=== PATIENT | female | born 1995 | race Two or more races ===

== ENCOUNTER 2024-12-01 08:57 | Inpatient (IN) | payer OTHER, SELFPAY ==
--- OUTSIDE RECORDS SUMMARY | 2013-08-02 09:30 | XMS_ITS | Continuity of Care Document ---
Author Organization [email or web address] Address [address] [place] [address] Phone Care Team Providers Care Correction Officer [facility] Name Role Phone Unavailable Unavailable Unavailable Advance Directives Directive Yes / No Effective Date File Name No Information Encounters Encounter Description Practice Location Reason(s) For Visit Diagnoses Date Provider Providers Copied on Encounter [email or web address], [address], [place], [place], [id number], [place] tel:[phone] [facility] No Information No Information Family History Family Member Type Diagnosis Age At Onset Father Problem (finding) Alive and well Mother Problem (finding) Alive and well Payers Payer name Insurance type Covered alliance party ID Authoriza tion(s) No Information Social History Type Description Quantity Date Captured Comments Sex Female Smoking Status No Information Chief Complaint And Reason For Visit No Information Reason For Referral Reason For Referral No Information History Of Present Illness Encounter Date Complaint History Of Prese nt Illness No Information Functional Status Date Functional Assessmen t No Information Instructions Date Instruction Additional Infor mation No Information Assessments Type Assessment Date No Information Patient Care Teams Name Effective Dates (start - stop) Status Members No Information
--- OUTSIDE RECORDS SUMMARY | 2019-12-01 06:27 | XMS_ITS | Continuity of Care Document ---
Author Organization [employer] Address [address] [place] [address] Phone Care Team Providers Care Qc Chemist Name Role Phone Nursing, Opt Tech Unavailable Unavailable Allergies, Adverse Reactions, Alerts Substance Reaction Status Criticality No Known Allergies Active No Inform ation Medications Medication Instructions Dosage Effective Dates (start - stop) Status Comments No Drug Therapy Prescribed Problems Condition Type Effective Dates (start - stop) Clini jude Status Comments No Known Problems Procedures Procedure Date PREV VISIT, EST, AGE 18-39 IZ Admin, Vaccine For Adults U/A DIP, W/ Urinalyzer SPECIMEN HANDLING URINE TEST OFFICE/OUTPATIENT VISIT, NEW CONFIDENTIAL ENCOUNTER Advance Directives Directive Yes / No Effective Date File Name No Information Encounters Encounter Description Practice Location Reason(s) For Visit Diagnoses Date Provider Providers Copied on Encounter 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 [address] [place], [address], [place]. tel:[phone] [facility] Jovani jason, [address] [place] [address], [id number] , tel:[phone] DELMI Gómez Referral of patient without examination or treatment 0 Nursing [employer] [address] [place], [address], [place]. tel:[phone] PREV VISIT, EST, AGE 18-39 [facility], [address], [place], [place], [id number] , tel:[phone] [facility] [place] Adult PE (chief complaint) Encntr for general adult medical exam w/o abnormal findingsTuberculo sis screeningBody mass index (BMI) 28.0-28.9, adult [address], [id number] [place], [address], . tel:[phone] OFFICE/OUTPA TIENT VISIT, NEW [facility], [address], [place], [place], [id number] , tel:[phone] [facility] Sem[place] abdominal pain (chief complaint) Contraceptive surveillanceAbdom inal pain No Information Family History Family Member Type Diagnosis Age At Onset No Information Immunizations Vaccine Date Status Comments HPV9 administered Source: [facility] unization Record Payers Payer name Insurance type Covered green party ID Authoriza tion(s) No Information Social History Type Description Quantity Date Captured Comments Alcohol Use Details Unknown Caffeine Use Details Unknown Tobacco Use Status No Information Smoking Status No Information Sex Female Chief Complaint And Reason For Visit No Information Plan Of Treatment Date Type Action Status Goal Breast exam. Due on due Goal Tdap. Due on due Goal Influenza vaccine. Due on due Goal PAP (21 + yr). Due on due Goal PAP (21 + yr). Due on due Goal Tdap. Due on due Goal Influenza vaccine. Due on due Goal Breast exam. Due on 020 due Goal Breast exam. Due on 019 due Goal Influenza vaccine. Due on due Goal Tdap. Due on due Goal PAP (21 + yr). Due on due Goal Lifestyle education regardin g diet completed Goal Flu Preservative Free, 5yr+ and OB (Tri). Due on due Goal Tdap. Due on due Referral Ordered: Pending Provider (related to Referral of patient without examination or treatment) ordered Referral Referred To: Pending Provider Ordered: Referrals: Psychotherapy. Pending Provider. Evaluate and treat ordered History Of Present Illness Encounter Date Complaint History Of Prese nt Illness Adult PE Period: irregula rBCM:nexplanonpap: 1 year - CMHConcerns: need marriage PELast dental visit: 3 yearLast optometry visit: neverLast Tdap:2013Last PPD:2 years negativeFruits and Vegetables:Physical activity:pmhx deniessxhx deniesfmhx denies abdominal pain Onset: 3 Days. T he severity of the problem is mild. Pain scale: 6/10. The problem is improving. The symptoms are intermittent. The location is midline. The quality of the pain is achy. Pertinent negatives include back pain, bloating, blood in stool, change in appetite, constipation, diarrhea, dyspnea, fever, flank pain, heartburn, hematuria, nausea, vaginal bleeding, vaginal discharge and vomiting. Medications Administered Medication Instructions Dosage Effective Dates (start - stop) Status Comments No Drug Therapy Prescribed Instructions Date Instruction Additional Infor mation Lifestyle education regarding di et Related to BMI 28.0-28.9,adult Giving encouragement to exercise Related to BMI 28.0-28.9,adult Assessments Type Assessment Date No Information
[2024-12-01] VITALS (102 sets, daily range): BP systolic 79–130; BP diastolic 42–89; PULSE 75–127; RESP 16–18; TEMP 36.1–36.8; O2SAT 98–100; BMI 41.7
--- NOTE | 2024-12-01 09:43 | LDADM ---
This patient, Mary Glover, was admitted to Labor/Delivery/Recovery 105 on 12/01/24 at 08:57. Plans for labor, pain management and were discussed with patient. Patient/family oriented to hospital policies and general routines including ID bracelet, bed and alarms, visiting hours, pain management, procedures, bathroom and other care routines, personal items, smoking policy, room service/diet and guest tray routines, security routines, and visiting hours. Patient/Family are encouraged to report perceived risks to care and to ask questions if they do not understand what they are told or what they should do. See [facility] for further documentation.
[2024-12-01 09:49] LABS: Hematocrit 34.9 % (37.0-47.0); Hemoglobin 11.0 g/dL (12.0-15.0); Immature Granulocyte Percent A 0.7 % (0-0.5); Lymphocytes Absolute Auto 1.86 K/mm3 (0.9-3.2); Mean Corpuscular HGB Conc 31.5 g/dl (32-36); Mean Corpuscular Hemoglobin 27.4 pg (26-34); Mean Corpuscular Volume 86.8 fl (80-100); Nucleated Red Blood Cells Absolute Auto 0.000 K/mm3 (0.0-0.012); Nucleated Red Blood Cells Perc 0.0 % (0.0-0.2); Platelet Count Result 297 k/mm3 (150-375); Red Blood Count 4.02 M/mm3 (4.2-5.4); White Blood Count 7.3 K/mm3 (4.5-10.0)
--- OUTSIDE RECORDS SUMMARY | 2024-12-01 10:06 | XMS_ITS | Clinical Summary ---
Author Organization [facility] Address [address] [place] [address] Care Team Providers Care Directional Driller Name Role Phone Unavailable Primary Care Provider Unavailabl e Source Comments [facility],non-owned Affiliates and Associated Physician Practices is amultiple site organization consisting of ambulatory clinics and hospital sitesin [place], [place], [place] and [place]. This disclosure is being madepursuant to the Care Everywhere program and may not contain all information available regarding this patient. Last updated 17.[employer] Allergies No known active allergies Medications * Be aware that medications may not be up to date on this document. Alwaysverify current medications with the patient. Vit-Iron Carbonyl-FA (Thrivite Rx) 29-1 MG TABSIndications:Pre gnancy Take 1 tablet by mouth once daily Reasons: 90 tablet 3 05/11/19 24 Active Additional Information Patient not taking.Reported on 09/18/2024 docusate sodium (Colace) 100 MG capsule Take 1 (one) capsule by mouth once daily 90 capsule 3 05/11/19 24 Active Additional Information Patient not taking.Reported on 09/18/2024 iron polysaccharides (Niferex 150) 150 MG capsule Take 1 (one) capsule by mouth once daily 100 capsule 09/06/19 24 Active Additional Information Patient not taking.Reported on 09/18/2024 acetaminophen (Tylenol) 500 MG tablet Take 2 (two) tablets by mouth every 6 hours as needed Maximum allowable Acetaminophen amount = 4 Grams (4000 mg) / 24 hours. 60 tablet 11/01/19 24 Active ondansetron, disintegrating, (Zofran ODT) 4 MG tablet Take 1 (one) tablet by mouth every 6 hours as needed for Nausea/Vomiting Allow tablet to dissolve on the tongue 30 tablet 2 05/15/19 Active Additional Information Patient not taking.Reported on 09/18/2024 plus iron (Natatab) 29-1 MG tabletIndications:P regnancy Take 1 (one) tablet by mouth once daily Reasons: 90 tablet 3 06/13/19 Active Active Problems Patient Care Coordination No te Formatting of this note migh t be different from the original. [employer] form completed. Diapers given. 08/09/2023; 09/06/23, 10/04/23, 10/25/23, 09/18/2024 Problem Noted Date Diagnosed Date Short interval between pregn ancies affecting , antepartum 07/24/2024 20 weeks gestation of 07/24/2024 Supervision of low-risk 05/16/2024 Overview (05/16/2024): Supervision of - Datin wk US - PNL: O+/pending/-/-, NR/NR - Gc/Chl/trich: -/-/- - Urine culture: pending - UDS: negative - Hgb Elec: wnl 2023 - Cystic Fibrosis: negative 2023 - SMA carrier screening: negative 2023 - NIPT: collected 05/15 - Pap: NILM 04/2023 - MOF: breast/formula - MOC: to be discussed - MOD: ALVIN - EPDS: 0 - PNVs: prescribed - Influenza vaccine: declines 05/15 - COVID vaccine: declines 05/15 - RSV vaccine: out of season - GCT: at 28 weeks - 3T labs: at 28 weeks - Tdap: at 28 weeks - Rhogam: not indicated - GBS: at 36 weeks Transportation insecurity 05/11/2023 Estimated Date of Delivery Comme nts Yes 12/07/2024 Based on Ultraso und Resolved Problems Problem Noted Date Diagnosed Date Resolved Date Dizziness 06/29/2023 09/06/2023 Hypokalemia 06/29/2023 05/16/2024 Overview (08/23/2023): 4/9/24- K+ 3.1, Oral repletion in [facility] Repeat 08/09/23 3.5: Stable Assessment & Plan (07/13/2023 11:09 AM CDT): Supplemented in [facility] Repeat CMP with third trimester labs at follow up Encounter for supervision of low-risk in second trimester 05/11/2023 05/16/2024 Overview (10/11/2023): Datin week US PNL: O+/I/-/-, HIV NR Pap: NILM 04/2023 GC/CT/trich: negative Urine cx: negative UDS: negative H/H/P: 11.4/33.8/283 HgbE: WNL CF/SMA: Negative Genetics: NIPT LR Anatomy US: 18-20 weeks Tdap: administered 08/09/23 HCV: NR Third trimester: GCT: 124 H&H/Plt: 10.1&31.8/300 HIV/TPA: nr/nr GBS: Negative MOF/MOC:BR/OCP (given instructions on how to obtain breast pump) Assessment & Plan (10/25/2023 1:52 PM CDT): - PNC up to date - Patient would like to discuss IOL at f/u if undelivered. Assessment & Plan (10/18/2023 2:41 PM CDT): Desires Spontaneous Labor. Assessment & Plan (10/11/2023 2:50 PM CDT): GBS Negative Assessment & Plan (08/23/2023 1:08 PM CDT): MOF/MOC:BR/OCP (given instructions on how to obtain breast pump) Assessment & Plan (07/13/2023 11:09 AM CDT): Anatomy incomplete, AGA 06/14 Complete anatomy and repeat growth Third trimester labs at follow up Assessment & Plan (06/15/2023 10:39 AM CDT): Reviewed NOB labs today Anatomy US today History of blood transfusion 05/11/2023 07/24/2024 Overview (10/04/2023): H&H 08/09/23: 10.1/31.8 Adherent to PO iron Assessment & Plan (10/25/2023 1:52 PM CDT): - Compliant with PO Fe Assessment & Plan (10/11/2023 2:50 PM CDT): Compliant with Oral Iron Assessment & Plan (07/13/2023 11:10 AM CDT): Reassess CBC with third trimester labs Encounters Date Type Department Care Team Description 10/20/2024 Patient Outreach [facility] [address] [place] [address] Lashell May RN Care Management Other (Called pt to follow up on resources sent for SDUT needs. LAMP services used. Pt states things are going well. Pt states she has stable housing and bills are up to date. Has SNAP and WIC and denies food insecurity. Still had reliable transportation. Pt did not make it to her last PNV, asked pt if she was continuing care with [facility] and she stated yes. Stress level is 3/10, it has gotten better. Pt states she has a car seat and crib and other essentials for baby. Denies needing any additional res) 09/18/2024 12:58 PM CDT - 09/18/2024 11:59 PM CDT Hospital Encounter [facility] [address] [place] [address] Flores Mcdaniel MD Discharge Disposition: Home or Self Care 09/18/2024 Travel from Last 3 Months Immunizations Immunization Administration Dates Next Due MMR 11/01/2023() TDAP (7yrs+) 09/18/2024,11/01/2023(),08/09/19 Family History Medical History Relation Name Comments None Known Brother 1 None Known Brother 2 None Known Brother 3 None Known Brother 4 None Known Brother 5 None Known Father None Known Mother Relation Name Status Comments Brother 1 Brother 2 Alive Brother 3 Alive Brother 4 Alive Brother 5 Alive Father Alive Mother Alive Social History Tobacco Use Types Packs/Day Years Used Date Smoking Tobacco: Never Smokeless Tobacco: Never Tobacco Cessation:Counseling Given: Not Answered Alcohol Use Standard Drinks/Week Comments Not Currently 0 (1 standard drink = 0.6 oz pur e alcohol) Overall Financial Resource Strain (CARDIA) Answe r Date Recorded How hard is it for you to pa y for the very basics like food, housing, medical care, and heating? Not very hard 09/18/2024 [facility] Occupat ional Health - Occupational Stress Questionnaire Answer Date Recorded Do you feel stress - tense, restless, nervous, or anxious, or unable to sleep at night because your mind is troubled all the time - these days? Not at all 09/18/2024 Hunger Vital Sign Answer Date Recorded Within the past 12 months, y ou worried that your food would run out before you got the money to buy more. Never true 09/19/19 25 Within the past 12 months, t he food you bought just didn't last and you didn't have money to get more. Never true 09/18/2024 PRAPARE - Transportation Answer Date Re corded In the past 12 months, has l ack of transportation kept you from medical appointments or from getting medications? No 08/22 In the past 12 months, has l ack of transportation kept you from meetings, work, or from getting things needed for daily living? No 09/18/2024 Housing Stability Vital Sign Answer Ede e Recorded In the last 12 months, was t here a time when you were not able to pay the mortgage or rent on time? No 12/06/2023 In the last 12 months, how many places have you lived? 2 12/06/2023 In the last 12 months, was t here a time when you did not have a steady place to sleep or slept in a mcfp (including now)? No 12/06/2023 Caldwell Depression Scale Answer Date Recorded Caldwell Depression Scale Total 0 05/15/2024 The thought of harming myself has occurred to me . Never 05/15/2024 Housing Stability Vital Sign Answer Ede e Recorded In the last 12 months, was t here a time when you were not able to pay the mortgage or rent on time? No 09/18/2024 In the past 12 months, how m any times have you moved where you were living? 1 09/18/2024 At any time in the past 12 m [facility], were you homeless or living in a mcfp (including now)? No 09/18/2024 Estimated Date of Delivery Comme nts Yes 12/07/2024 Based on Ultraso und Sex and Gender Information Value Date Recorded Sex Assigned at Not on file Legal Sex Female 11:17 AM CUSTOMER ACCOUNT EXECUTIVE Gender Identity Not on file Sexual Orientation Not on file Last Filed Vital Signs Vital Sign Reading Time Taken Comments Blood Pressure 94/65 09/18/2024 1:43 PM CDT Pulse 87 09/18/2024 1:43 PM CDT Temperature 36.9 C (98.4 F) 11/01/2023 10:15 AM CDT Respiratory Rate 18 11/01/2023 10:1 5 AM CDT Oxygen Saturation 100% 11/01/2023 10: 15 AM CDT Inhaled Oxygen Concentration - - Weight 73.4 kg (161 lb 12.8 oz) 09/18/2024 1:43 PM CDT Height 139.7 cm (4' 7) 05/15/2024 2:20 PM CUSTOMER ACCOUNT EXECUTIVE Body Mass Index 37.61 05/15/2024 2:20 PM CUSTOMER ACCOUNT EXECUTIVE Plan of Treatment Upcoming Encounters Date Type Department Care Team (Late st Contact Info) Description 12/05/2024 3:00 PM CDT Appointment [facility] [address] [place] [address] [address] [place] [address] Health Maintenance Due Date Last Done Comments HEPATITIS B VACCINE (1 of 3 - 19+ 3-dose series) 01/29/2016 HPV VACCINE (1 - 3-dose SCDM series) 01/29/2024 OB-GROUP B STREP SCREEN 11/02/2024 11/07/2024, 10/03 COVID-19 VACCINE ( season) 2024 INFLUENZA VACCINE (#1) 2024 03/04/2023 PAP SMEAR 05/11/2026 05/11/2023 DTAP/TDAP/TD VACCINES (3 - Td or Tdap) 09/18/2034 09/18/2024, 08/09/2023 ZOSTER VACCINE (1 of 2) 2047 DEPRESSION SCREENING Completed 05/15/2024 HEPATITIS C SCREENING Completed 05/15/2024, 024 HIV SCREENING Completed 09/18/2024, 04/23, 08/09/2023, Additional history exists OB-ONE HOUR GLUCOSE Completed 09/18/2024, OB-TDAP CURRENT Completed 09/18/2024, HIB VACCINE Aged Out No longer eligi ble based on patient's age to complete this topic MENINGOCOCCAL (Group B) VACCINE SHARED DECISION-MAKING Aged Out No longer eligible based on patient's age to complete this topic MENINGOCOCCAL GROUPS A/C/Y/W VACCINE Aged Out No longer eligible based on patient's age to complete this topic PNEUMOCOCCAL VACCINE Aged Out No long er eligible based on patient's age to complete this topic Respiratory Syncytial Virus (RSV) Vaccine Pt: or over 60 yrs (No Doses Required) Completed Procedures Procedure Name Priority Date/Time Associated Diagnosis Comments SYPHILIS ANTIBODY CASCADING REFLEX Routine 09/18/2024 2:11 PM CDT Supervision of low-risk HIV-1 HIV-2 ANTIBODY + HIV P24 AG PANEL Routine 09/18/2024 2:11 PM CDT Supervision of low-risk CBC W AUTO DIFFERENTIAL Routine 09/18/2024 2:11 PM CDT Supervision of low-risk GLUCOSE CHALLENGE Routine 09/18/2024 2:1 1 PM CDT Supervision of low-risk HEPATITIS C ANTIBODY Routine 05/15/2024 2:57 PM CUSTOMER ACCOUNT EXECUTIVE Encounter for supervision of low-risk in second trimester CULTURE STREP B Routine 10/04/2023 2:04 PM CDT Encounter for supervision of low-risk in second trimester PAP IG LB RFLX HPV APTIMA ASCU Routine 05/11/2023 10:47 AM CUSTOMER ACCOUNT EXECUTIVE Encounter for supervision of low-risk in second trimester from Last 3 Months or Most Recently Relevant to Health Maintenance Results * SYPHILIS ANTIBODY CASCADING REFLEX (09/18/2024 2:11 PM CDT) Treponema pallidum Antibody Non Reactive Non Reactive 09/18/2024 3:36 PM CDT [facility] Comment: No Laboratory evidence of syphilis infection. Note: Circulating antibodies may be low or undetectable in early infection. If recent exposure is suspected, re-draw sample in 2-4 weeks and repeat testing. Blood BLOOD SPECIMEN / Unknown Venipuncture / Unknown 09/18/2024 2:11 PM CDT 09/18/2024 2:47 PM CDT Flores Mcdaniel MD LAB - SEROLOGY ORDERABLES Final Result Performing Organization Address [facility] Co de Phone Number [facility] [address] [place], [place] [phone] * HIV-1 HIV-2 ANTIBODY + HIV P24 AG PANEL (09/18/2024 2:11 PM CDT) Pathologist [facility] HIV1/2 Ab + P24 Ag Non Reactive Non Reactive 09/18/2024 3:36 PM CDT [facility] Blood BLOOD SPECIMEN / Unknown Venipuncture / Unknown 09/18/2024 2:11 PM CDT 09/18/2024 2:47 PM CDT Narrative [facility] - 09/18/2024 3:36 PM CDT No Laboratory evidence of HIV infection. Flores Mcdaniel MD LAB - CHEMISTRY ORDERABLES Ansley l Result Performing Organization Address [facility] Co de Phone Number [facility] [address] [place] [phone] * (ABNORMAL) CBC W AUTO DIFFERENTIAL (09/18/2024 2:11 PM CDT) Pathologist [facility] WBC 7.4 4.0 - 10.7 x10E9/L 09/18/2024 2:55 PM CDT [facility] RBC Count 3.64(L) 3.90 - 5.20 x10E12/L 09/18/2024 2:55 PM CDT [facility] Hemoglobin 10.7(L) 11.9 - 15.8 g/dL 09/18/2024 2:55 PM CDT [facility] Hematocrit 32.6(L) 34.8 - 46.1 % 09/18/2024 2:55 PM CDT [facility] MCV 89.6 80.0 - 98.0 fL 09/18/2024 2:55 PM CDT [facility] MCH 29.4 26.7 - 33.6 pg 09/18/2024 2:55 PM CDT [facility] MCHC 32.8 31.7 - 36.3 g/dL 09/18/2024 2:[facility] RDW-CV 13.4 11.3 - 14.8 % 09/18/2024 2:55 [address] [facility] Platelet Count 311 150 - 420 x10E9/L 09/18/2024 2:55 PM CDT [facility] MPV 9.8 7.8 - 11.4 fL 09/18/2024 2:55 [address] [facility] Neutrophil % 59.4 41.0 - 74.0 % 09/18/2024 2:55 PM CDT [facility] Lymphocyte % 29.3 17.0 - 47.0 % 09/18/2024 2:55 PM CDT [facility] Monocyte % 9.7 3.0 - 11.0 % 09/18/2024 2:55 PM CDT [facility] Eosinophil % 0.5 0.0 - 7.0 % 09/18/2024 2:55 PM CDT [facility] Basophil % 0.3 0.0 - 1.6 % 09/18/2024 2:55 PM CDT [facility] Immature Granulocytes % 0.8 0.0 - 1.0 % 09/18/2024 2:55 PM CDT [facility] Neutrophil Absolute 4.42 1.60 - 7.50 x10E9/L 09/18/2024 2:55 PM CDT [facility] Lymphocyte Absolute 2.18 1.00 - 4.40 x10E9/L 09/18/2024 2:55 PM CDT [facility] Monocyte Absolute 0.72 0.15 - 1.00 x10E9/L 09/18/2024 2:55 PM CDT [facility] Eosinophil Absolute 0.04 0.00 - 0.60 x10E9/L 09/18/2024 2:55 PM CDT [facility] Basophil Absolute 0.02 0.00 - 0.13 x10E9/L 09/18/2024 2:55 PM CDT [facility] Blood BLOOD SPECIMEN / Unknown Venipuncture / Unknown 09/18/2024 2:11 PM CDT 09/18/2024 2:47 PM CDT Flores Mcdaniel MD LAB - HEMATOLOGY ORDERABLES Fin al Result Performing Organization Address [facility] Co de Phone Number [facility] [address] [place] [phone] * GLUCOSE CHALLENGE (09/18/2024 2:11 PM CDT) [facility] Glucose Challenge 95 64 - 140 mg/dL 09/18/2024 3:14 PM CDT [facility] Glucose Challenge Time 09/18/2024 3:14 PM CDT [facility] Blood BLOOD SPECIMEN / Unknown Venipuncture / Unknown 09/18/2024 2:11 PM CDT 09/18/2024 2:47 PM CDT Flores Mcdaniel MD LAB - CHEMISTRY ORDERABLES Ansley l Result Performing Organization Address City/[facility] Co de Phone Number [facility] [address] [place] [phone] * HEPATITIS C ANTIBODY (05/15/2024 2:57 PM CUSTOMER ACCOUNT EXECUTIVE) [facility] HCV Antibody Screen Non Reactive Non Reactive 05/15/2024 4:10 PM CUSTOMER ACCOUNT EXECUTIVE [facility] Blood BLOOD SPECIMEN / Unknown Venipuncture / Unknown 05/15/2024 2:57 PM CUSTOMER ACCOUNT EXECUTIVE 05/15/2024 3:18 PM CUSTOMER ACCOUNT EXECUTIVE Narrative [facility] - 05/15/2024 4:10 PM CUSTOMER ACCOUNT EXECUTIVE Non Reactive - Antibodies to Hepatitis C virus (HCV) were not detected, result does not exclude early acute HCV infection. us Zak Fonseca MD LAB - CHEMISTRY ORDERABLES Ansley roth Result Performing Organization Address City/[facility]/ZIP Co de Phone Number [facility] [address] [place] [address] * CULTURE STREP B (10/04/2023 2:04 PM CDT) Culture Strep B Negative for beta-hemolytic Streptococcus Group B ZULLY 10/07/2023 12:02 PM CDT [facility] MICROBIOLOGY Microbiology MISCELLANEOUS SAMPLES / Unknown Collection / Unknown 10/04/2023 2:04 PM CDT 10/04/2023 2:38 PM CDT Flores Mcdaniel MD LAB - MICROBIOLOGY ORDERABLES F inal Result Performing Organization Address [facility] Co de Phone Number [facility] MICROBIOLOGY [address] [phone] * PAP IG LB RFLX HPV APTIMA ASCU (05/11/2023 10:47 AM CUSTOMER ACCOUNT EXECUTIVE) Diagnosis Comment 05/14/2023 1:10 PM CUSTOMER ACCOUNT EXECUTIVE [facility] ([facility]) Comment:NEGATIVE FOR INTRAEP ITHELIAL LESION OR MALIGNANCY. Specimen Adequacy Comment 1:10 PM CUSTOMER ACCOUNT EXECUTIVE [facility] ([facility]) Comment: Satisfactory for evaluation. Endocervical and/or squamous metaplastic cells (endocervical component) are present. Performed by Comment 05/14/2023 1:10 PM CUSTOMER ACCOUNT EXECUTIVE [facility] ([facility]) Comment:Irina Mayer Cyto technologist (ASCP) Comment . 05/14/2023 1:10 PM CUSTOMER ACCOUNT EXECUTIVE [facility] ([facility]) Note Comment 05/14/2023 1:10 PM CUSTOMER ACCOUNT EXECUTIVE [facility] ([facility]) Comment: The Pap smear is a screening test designed to aid in the detection of premalignant and malignant conditions of the uterine cervix. It is not a diagnostic procedure and should not be used as the sole means of detecting cervical cancer. Both false-positive and false-negative reports do occur. IGL[facility] CPT Code Automation Comment 05/14/2023 1:10 PM CUSTOMER ACCOUNT EXECUTIVE [facility] ([facility]) Comment: This liquid based ThinPrep(R) pap test was screened with the use of an image guided system. Note Comment 05/14/2023 1:10 PM CUSTOMER ACCOUNT EXECUTIVE [facility] ([facility]) Comment: The HPV DNA reflex criteria were not met with this specimen result therefore, no HPV testing was performed. Pathology/Cytolo gy ENTIRE ENDOCERVIX / Unknown Collection / Unknown 05/11/2023 10:47 AM CUSTOMER ACCOUNT EXECUTIVE 05/11/2023 11:16 AM CUSTOMER ACCOUNT EXECUTIVE Narrative [facility] ([facility]) - 05/14/2023 1:10 PM CUSTOMER ACCOUNT EXECUTIVE Performed at: 01 - [address] [id number] Forensic Nurse: Jenae Weems MD, Phone: [phone] Specimen Comment: Source.............Endocervix Specimen Comment: No. of containers..01 ThinPrep Vial Marcella Watters APRN-TABLE INSPECTOR LAB - PATHOLOGY/CYTO LOGY ORDERABLES Final Result [facility] ([facility]) [address] [place] [phone] from Last 3 Months or Most Recently Relevant to Health Maintenance Insurance [facility] Advance Directives * Full Code (Latest Code Status on File) Date Activated Date Inactivated Comments 10/31/2023 3:01 AM 11/01/2023 4:04 PM * Full Code Date Activated Date Inactivated Comments 06/29/2023 11:01 AM 06/29/2023 1:48 PM
[2024-12-01] MEDS: LACTATED RINGERS 1,000 ML 125 ML IV CONT ×2 (10:10→13:26)
[2024-12-01 10:23] LABS: Alanine Aminotransferase 16 U/L (6-35); Albumin Level 3.7 g/dL (3.5-5.1); Alkaline Phosphatase 177 U/L (38-126); Anion Gap 10 mmol/L (4-12); Aspartate Amino Transferase 24 U/L (14-36); Bilirubin,Total 0.2 mg/dL (0.2-1.3); Blood Urea Nitrogen 7 mg/dL (7-17); Calcium 8.8 mg/dL (8.4-10.2); Carbon Dioxide 17 mmol/L (22-30); Chloride 106 mmol/L (98-107); Estimated Glomerular Filt Rate > 60; Glucose 100 mg/dL (65-110); Potassium 3.9 mmol/L (3.4-5.0); Sodium 133 mmol/L (137-145); Total Protein 7.3 g/dL (6.3-8.2)
[2024-12-01] MEDS: TERBUTALINE SULFATE 1 MG/ML VIAL 0.25 MG SUB-Q (10:44)
[2024-12-01 10:51] LABS: Syphilis IgG/IgM Antibody Non-Reactive (Nonreactive)
[2024-12-01 11:15] LABS: Hepatitis B Surface Antigen Negative (Negative)
--- NOTE | 2024-12-01 12:36 | WPDHPUPDATE1 ---
History and Physical Update Update Date/Time: 12/01/24 12:36 this patient is a 29-year-old multiparous female at term who presents in labor. She had a heart deceleration that resolved. Rupture membranes was just performed. She has clear fluid. She is 6/50%/-2. Reassuring status. Active management of labor. History and Physical has been reviewed, including an updated exam of the patient. There are NO changes in the patient's condition. Risks, benefits, and alternatives have been discussed and questions answered. Patient agrees to proceed with procedure.
[2024-12-01] MEDS: OXYTOCIN 30 UNITS/NS 500 ML 30 UNITS/500 ML BAG IV CONT (13:24)
--- NOTE | 2024-12-01 14:38 | P.PNAN_ITS ---
Anes - Initial Pre Proc Eval Procedure: labor epidural Date/Time: 12/01/24 14:38 Surgeon: Davey Galvin MD Pre Op Diagnosis: labor pain Pre Op Diagnosis: Labor Patient Data Age: 29 Gender: F Height: 1.37 m Weight: 78.5 kg Last Vital Signs Temp 36.1 C L 12/01/24 12:33 Pulse 88 12/01/24 14:30 BP 124/87 12/01/24 14:30 Pulse Ox 100 12/01/24 14:35 O2 Del Method Room Air 12/01/24 09:40 Allergies Allergy/AdvReac Type Severity Reaction Status Date / Time No Known Allergies Allergy Verified 12/01/24 10:06 Laboratory Tests 12/01/24 12/01/24 09:41 09:51 WBC 7.3 K/mm3 (4.5-10.0) RBC 4.02 L M/mm3 (4.2-5.4) Hgb 11.0 L g/dL (12.0-15.0) Hct 34.9 L % (37.0-47.0) MCV 86.8 fl (80-100) MCH 27.4 pg (26-34) MCHC 31.5 L g/dl (32-36) RDW 15.6 H % (11.5-14.5) Plt Count 297 k/mm3 (150-375) MPV 10.5 H fl (7.4-10.4) Immature Gran % (Auto) 0.7 H % (0-0.5) Neut % (Auto) 66.1 % (45.5-73.1) Lymph % (Auto) 25.3 % (18.3-44.2) Walton % (Auto) 7.5 % (2.6-8.5) Eos % (Auto) 0.1 % (0-4.4) Baso % (Auto) 0.3 % (0.2-1.2) Lymph # (Auto) 1.86 K/mm3 (0.9-3.2) Walton # (Auto) 0.6 K/mm3 (0.1-0.6) Eos # (Auto) 0.0 K/mm3 (0-0.3) Baso # (Auto) 0.0 K/mm3 (0.0-0.1) Abs Immat Gran (auto) 0.05 H K/mm3 (0.00-0.031) Absolute Neuts (auto) 4.9 K/mm3 (1.3-6.7) Absolute Nucleated RBC 0.000 K/mm3 (0.0-0.012) Nucleated RBC % 0.0 % (0.0-0.2) Sodium 133 L mmol/L (137-145) Potassium 3.9 mmol/L (3.4-5.0) Chloride 106 mmol/L (98-107) Carbon Dioxide 17 L mmol/L (22-30) Anion Gap 10 mmol/L (4-12) BUN 7 mg/dL (7-17) Creatinine 0.52 L mg/dL (0.7-1.0) Estim Creat Clear Calc Not Reportable Estimated GFR > 60 (59 - ) Glucose 100 mg/dL (65-110) Calcium 8.8 mg/dL (8.4-10.2) Total Bilirubin 0.2 mg/dL (0.2-1.3) AST 24 U/L (14-36) ALT 16 U/L (6-35) Alkaline Phosphatase 177 H U/L (38-126) Total Protein 7.3 g/dL (6.3-8.2) Albumin 3.7 g/dL (3.5-5.1) Syphilis IgG/IgM Ab Non-reactive (Nonreactive) Hep Bs Antigen Negative (Negative) Rubella IgG Antibody 41.4 IU/ML (10 - ) Blood Type O Positive Antibody Screen Negative Patient hx anesthesia problems: none Family hx anesthesia problems: none Results Review: All pre-operative results and documents have been reviewed as part of the pre- operative evaluation. [facility] Social History Social History Smoking status: Never smoker Lack of Transportation: No Lack of Food: Never True Current Housing: I Have Housing Concerned About Future Housing: No Difficulty Paying Gas/Electric Bills: No Difficulty Paying for Meds: No Currently Unemployed: No Education: High School Diploma/GED Difficulty w/ Childcare or Family Care: No Spiritual care concerns: No Anes - Eval Final PreProcedure Day of Procedure 12/01/24 14:38 Patient weight: morbidly obese ASA classification: III Anesthetic plan: proceed Anesthesia type and monitoring: regional epidural and standard monitoring Results Review: All pre-operative results and documents have been reviewed as part of the pre- operative evaluation. Informed Consent: The patient's anesthetic plan and its attendant risks and benefits were discussed with the patient/family/POA. Questions were solicited and answers provided to the satisfaction of the patient/family/POA.
--- NOTE | 2024-12-01 15:08 | PM.OBPRVD ---
OB - Vaginal Delivery Note Procedure Delivery date: 12/01/24 Delivery augmentation: Rupture of Membranes and Pitocin Delivery monitor: External FHT and External Uterine Route of delivery: Episiotomy description: None Laceration Description: Perineal - 1st Degree Delivery repair: vicryl Specimen: No Quantitative Blood Loss (ml): 50 Anesthesia type: Epidural Complications: No immediate complications
[2024-12-01] MEDS: OXYTOCIN 30 UNITS/NS 500 ML 30 UNITS/500 ML BAG 125 UNITS IV CONT (15:36)
--- NOTE | 2024-12-01 17:38 | OBPPTRN ---
Patient transferred to post room # 284 via wheelchair. Support person present. Oriented to unit, room, information board, rooming in, admission packet and security measures. Patient verbalizes understanding.
[2024-12-01] MEDS: IBUPROFEN 600 MG TABLET PO (18:28)
[2024-12-02] MEDS: IBUPROFEN 600 MG TABLET PO (04:42)
[2024-12-02 05:07] LABS: Hematocrit 31.9 % (37.0-47.0); Hemoglobin 10.0 g/dL (12.0-15.0)
[2024-12-02 07:47] VITALS: BP 96/55; PULSE 79; RESP 16; TEMP 36.3; O2SAT 94
[2024-12-02] MEDS: MULTIVIT/MIN/PREN/FOL AC/IRON TABLET 1 TAB PO (08:21)
[2024-12-02] MEDS: ACETAMINOPHEN 325 MG TABLET 650 MG PO (08:22)
[2024-12-02] MEDS: DOCUSATE SODIUM 100 MG CAPSULE PO (08:22)
--- NOTE | 2024-12-02 11:36 | WPDANLDPN2 ---
Anes-Prog Note L&D Date/Time: 12/02/24 11:36 Comfortable throughout: labor and delivery Neuraxial method: epidural Epidural/Spinal procedure site: clean & non-tender Neuro status: Neuro function grossly intact. Cardiovascular status: normal Respiratory status: normal Airway patency: baseline Mental status: baseline Post-Op hydration status: normal Vital Signs: Last Vital Signs Temp 36.3 C L 12/02/24 07:47 Pulse 79 12/02/24 07:47 Resp 16 12/02/24 07:47 BP 96/55 L 12/02/24 07:47 Pulse Ox 94 12/02/24 07:47 O2 Del Method Room Air 12/02/24 07:45 Pain score (VAS): 2 I/O: Intake & Output 12/01/24 12/02/24 12/02/24 23:59 07:59 15:59 Intake Total 0 Output Total 80 Balance -80 0 Post-procedural complaints: none Patient feedback: Patient satisfied with anesthetic care.
[2024-12-02] MEDS: TETANUS,DIPHTHERIA,AC PERTUSSIS ADULT (0.5 ML) BOOSTRIX IM (12:24)
--- NOTE | 2024-12-02 13:35 | P.PNOB_ITS ---
OB - PN: Subj Subjective Date/time seen: 12/02/24 13:35 Patient comments: no complaints, pain well controlled, incisional pain, tolerating diet and flatus present OB - PN: Obj Data Labs 12/02/24 04:09 12/01/24 09:51 Labs: Laboratory Results - last 24 hr 12/02/24 04:09 Hgb 10.0 L Hct 31.9 L OB - PN A/P Plan day: 1 Plan: routine care Comments: No problems, routine care Time Spent With Patient Time: Total time spent is greater than 50% in coordination of care (as documented) at patient's floor/unit and/or counseling patient: Exam 2 Const: General: comfortable, no acute distress and alert Resp: Effort & Inspection: normal respiratory effort Auscultation: no crackles, no rales and no rhonchi Cardio: Rate: regular rate Heart sounds: no click, no murmurs and no rubs GI: Inspection: non-distended GI Palp: No Tenderness to palpation present (GI) Auscultation: normal bowel sounds Other: Incision - CDI Extrem: General: normal to inspection, no pedal edema and no calf tenderness
--- NOTE | 2024-12-02 13:35 | PM.OBDSVD ---
DS: Admitting Diagnosis Discharge Date 12/02/2024 Admitting Diagnosis Term DS: Discharge Diagnosis Discharge Diagnosis (1) Term delivered: Code(s): O80 - Encounter for full-term uncomplicated delivery Status: Acute OB - DS: Summary OB Procedures : None OB Procedures Intrapartum: Spontaneous Vag Delivery OB Procedures: : None Peripartum Data Laceration Description: Perineal - 1st Degree Episiotomy description: None Time Spent with Patient Time attestation: Total time spent providing and/or coordinating discharge services: DS: Data Data Completed and Pending Labs on day of discharge: Labs from last 24 hours 12/02/24 04:09 Hgb 10.0 L Hct 31.9 L Discharge Plan Discharge Discharging Clinician: Davey Galvin Patient Disposition: Home Activity: pelvic rest Diet: regular Patient Instructions: Antibiotic Form Patient Language: Singaporean Stand Alone Forms: General Discharge Information Follow-up/Referrals: Davey Galvin MD [Physician, CABIN SUPERVISOR] Date of admission: 12/01/24 08:57 Primary Care Provider: UNKNOWN,DOCTOR Admitting Provider: Davey Galvin Attending physician on admission: Davey Galvin Condition: Stable
[2024-12-05 09:53] VITALS: BP 121/70; PULSE 92; RESP 18; TEMP 37.1; O2SAT 100
== END 2024-12-02 16:53 | disposition home or self-care (01) | DRG 560 ==
LOC: ANHLDR 09:47 → ANHOB2 17:49
PROVIDERS: Admitting Provider Obstetrics & Gynecology; Visit Provider Obstetrics & Gynecology
DX: O36.8330 Maternal care for abnormalities of the fetal heart rate or rhythm, third trimester, not applicable or unspecified (principal); Z37.0 Single live birth; Z3A.39 39 weeks gestation of pregnancy; O70.0 First degree perineal laceration during delivery
CPT/HCPCS: 36415; 80053; 85014; 85018; 85025; 86593; 86762; 86850; 86900; 86901; 87340; 90715; A9270; J2590; J2795; J3105; J7120